=== PATIENT | male | born 1955 | race Hispanic/Latino ===

== ENCOUNTER 2017-08-11 18:46 | Emergency (ER) | payer OTHER ==
[2017-08-11] MEDS ORDERED: IBUPROFEN 400 MG TABLET ONE (19:20)
[2017-08-11] MEDS ORDERED: IBUPROFEN 200 MG TAB ONE (19:21)
[2017-08-11 19:55] LABS: RAPID GROUP A STREP NEGATIVE (NEGATIVE)
== END 2017-08-11 20:09 | disposition home or self-care (01) ==
LOC: EDH 18:46
DX: J09.X2 Influenza due to identified novel influenza A virus with other respiratory manifestations (principal)
CPT/HCPCS: 87804; 87880

== ENCOUNTER → 2018-04-25 | Outpatient (CLI) | payer OTHER ==
[~2018-04-25] MED LIST: ASPI-1181 PO; LAMISIL PO; MULT1TAB70 PO; SIMV40TA5 PO
== END | disposition home or self-care (01) ==
LOC: RAH 14:29
PROVIDERS: ATTEND Internal Medicine
DX: M47.22 Other spondylosis with radiculopathy, cervical region (principal); M47.812 Spondylosis without myelopathy or radiculopathy, cervical region; M48.02 Spinal stenosis, cervical region; M25.78 Osteophyte, vertebrae
CPT/HCPCS: 72141

== ENCOUNTER → 2018-07-16 | Outpatient (CLI) | payer OTHER | END | disposition home or self-care (01) | LOC: RAH 15:44 | PROVIDERS: ATTEND Physical Medicine & Rehabilitation | DX: M47.26 Other spondylosis with radiculopathy, lumbar region (principal) | CPT/HCPCS: 72110 ==

== ENCOUNTER → 2018-12-09 | Outpatient (CLI) | payer OTHER ==
[2018-12-09 08:18] LABS: BASOPHILS % (AUTO) 0.4 % (0.0-5.0); EOSINOPHILS % (AUTO) 2.8 % (0.0-8.0); HEMATOCRIT 40.7 % (42-54); LYMPHOCYTES % (AUTO) 40.9 % (21.0-51.0); MEAN CORPUSCULAR HEMOGLOBIN 29.8 pg (27.0-33.0); MEAN CORPUSCULAR HGB CONC 33.5 g/dL (32.0-36.0); MEAN CORPUSCULAR VOLUME 89.1 fL (79-99); MONOCYTES % (AUTO) 7.6 % (3.0-13.0); NEUTROPHILS % (AUTO) 48.3 % (40.0-77.0); NUCLEATED RED BLOOD CELLS 0.1 % (0.0-0.19); PLATELET COUNT (AUTO) 210 K/uL (130-400); RED BLOOD CELL COUNT(AUTO) 4.57 MIL/uL (4.50-6.20); RED CELL DISTRIBUTION WIDTH 14.3 % (11.0-15.5); WHITE BLOOD COUNT (AUTO) 5.3 K/uL (4.8-10.8)
[2018-12-09 08:30] LABS: HEMOGLOBIN A1C 5.8 % (4.0-6.0)
[2018-12-09 08:36] LABS: ALBUMIN 4.2 g/dL (3.5-5.0); BILIRUBIN,TOTAL 0.5 mg/dL (0.2-1.0); CREATININE 1.2 mg/dL (0.5-1.5); POTASSIUM 4.3 mmol/L (3.5-5.1); TOTAL PROTEIN, SERUM 7.8 g/dL (6.0-8.3)
== END | disposition home or self-care (01) ==
LOC: LAB 07:40
PROVIDERS: ATTEND Internal Medicine
DX: E78.2 Mixed hyperlipidemia (principal); I10 Essential (primary) hypertension; R73.01 Impaired fasting glucose
CPT/HCPCS: 36415; 80053; 80061; 82043; 82270; 83036; 84153; 84154; 85025

== ENCOUNTER → 2019-02-24 | Outpatient (CLI) | payer OTHER | END | disposition home or self-care (01) | LOC: RAH 14:32 | PROVIDERS: ATTEND Neurological Surgery | DX: M51.16 Intervertebral disc disorders with radiculopathy, lumbar region (principal); M47.27 Other spondylosis with radiculopathy, lumbosacral region; M48.061 Spinal stenosis, lumbar region without neurogenic claudication; M25.78 Osteophyte, vertebrae | CPT/HCPCS: 72114; 72148 ==

== ENCOUNTER → 2020-01-01 | Outpatient (CLI) | payer OTHER ==
[~2020-01-01] MED LIST changes: -ASPI-1181 PO; +ASPI-1443 PO; +MULT-660 PO; -MULT1TAB70 PO; +SIMV-46 PO; -SIMV40TA5 PO
--- NOTE | 2020-01-01 22:46 | NUR ---
LOW DOSE ASPIRIN,ADVIL Addendum: 01/01/20 at 2248 by YORDY ECHEVERRIA Amended: Links added.
== END | disposition home or self-care (01) ==
LOC: SLP 20:38
PROVIDERS: ATTEND Internal Medicine
DX: G47.33 Obstructive sleep apnea (adult) (pediatric) (principal)
CPT/HCPCS: 95810

== ENCOUNTER → 2020-01-19 | Outpatient (CLI) | payer OTHER | END | disposition home or self-care (01) | LOC: SLP 20:32 | PROVIDERS: ATTEND Internal Medicine | DX: G47.33 Obstructive sleep apnea (adult) (pediatric) (principal) | CPT/HCPCS: 95811 ==

== ENCOUNTER 2021-08-01 07:23 | Day surgery (SDC) | payer OTHER ==
[~2021-08-01] VITALS: Ht 167.6 cm; Wt 78.0 kg
[~2021-08-01 07:23] MED LIST changes: +0.9%NACL 1000ML 1,000 ML IV ONE; +AMLO2.5T4 PO
[2021-08-01 09:03] VITALS: BP 153/75
[2021-08-01] MEDS ORDERED: TADA5TAB PO (09:48)
[2021-08-01] MEDS ORDERED: ATOR40TA71 PO (09:48)
[2021-08-01] MEDS ORDERED: PROPOFOL 10 MG/ML 20ML VIAL IV ONE ×2 (11:27)
[2021-08-01 11:55] VITALS: BP 111/75
[2021-08-01 12:00] VITALS: BP 119/66
[2021-08-01 12:05] VITALS: BP 126/64
[2021-08-01 12:10] VITALS: BP 128/60
== END 2021-08-01 12:15 | disposition home or self-care (01) ==
LOC: ENDO 07:23 → DAH 07:23 → ENDO 12:15
DX: Z12.11 Encounter for screening for malignant neoplasm of colon (principal); D12.5 Benign neoplasm of sigmoid colon; K29.50 Unspecified chronic gastritis without bleeding; K62.1 Rectal polyp; K44.9 Diaphragmatic hernia without obstruction or gangrene; K21.9 Gastro-esophageal reflux disease without esophagitis; K22.89 Other specified disease of esophagus; K31.89 Other diseases of stomach and duodenum; E78.5 Hyperlipidemia, unspecified; Z79.82 Long term (current) use of aspirin; Z79.899 Other long term (current) drug therapy; Z72.89 Other problems related to lifestyle; Z98.890 Other specified postprocedural states; Z20.822 Contact with and (suspected) exposure to COVID-19
CPT/HCPCS: 43239; 45380; 45385; 87635; A4215 ×2; A4221; A4222; A4223; A4606; A4620; A4663; C9803; J2704 ×2; J7030

== ENCOUNTER 2024-09-23 05:52 | Day surgery (SDC) | payer OTHER ==
[~2024-09-23] VITALS: Ht 167.6 cm; Wt 78.5 kg
[2024-09-23] VITALS (11 sets, daily range): BP systolic 100–158; BP diastolic 55–75; PULSE 67–75; RESP 15–18; TEMP 97.2–98.1
[~2024-09-23 05:52] MED LIST changes: -0.9%NACL 1000ML 1,000 ML IV ONE; +AMLO-257 PO; -AMLO2.5T4 PO; -ASPI-1443 PO; +ATOR40TA71 PO; -LAMISIL PO; -MULT-660 PO; -SIMV-46 PO; +TADA5TAB PO
[2024-09-23] MEDS: 0.9%NACL 1000ML 1,000 ML IV ONE (07:01)
[2024-09-23] MEDS ORDERED: proPOFol 10 MG/ML 20ML VIAL IV ONE (07:35)
== END 2024-09-23 09:15 | disposition home or self-care (01) ==
LOC: ENDO 05:52 → DAH 05:52 → ENDO 09:15
PROVIDERS: ATTEND Internal Medicine
DX: K59.00 Constipation, unspecified (principal); K29.50 Unspecified chronic gastritis without bleeding; K31.89 Other diseases of stomach and duodenum; K44.9 Diaphragmatic hernia without obstruction or gangrene; Z86.0100 Personal history of colon polyps, unspecified; I10 Essential (primary) hypertension; K21.9 Gastro-esophageal reflux disease without esophagitis; E78.5 Hyperlipidemia, unspecified; Z79.82 Long term (current) use of aspirin; Z79.899 Other long term (current) drug therapy
CPT/HCPCS: 43239; 45378; J7030; J2704; A4620; A4215; G0105; J3490

== ENCOUNTER → 2024-12-10 | Outpatient (CLI) | payer OTHER ==
--- NOTE | 2024-12-10 12:24 | HMCIMG ---
MR SPINAL CANAL, CERV WO CON HISTORY: Radiculopathy COMPARISON: None TECHNIQUE: MRI of the cervical spine was performed utilizing multiple pulse sequences in axial, coronal and sagittal plane. Patient was not given contrast through intravenous route. FINDINGS: No abnormal signal intensity is seen of the visualized bony structure. No loss of vertebral height is seen. There is straightening of normal lordotic cervical curvature which may be related to muscle spasm or positioning. Degenerative disc signals are present at all cervical spine levels. Cerebellar tonsils are in normal position. The cervical cord is of normal signal intensity without cord compression or impingement. At the C3-4 level, there is spondylotic disc causing anterior CSF space effacement with bilateral lateral recess stenosis and bilateral neural foraminal stenosis. The central canal measures approximately 6.5 mm in its anterior posterior dimension. At the C4-5 level, there is spondylotic disc causing anterior CSF space effacement with bilateral lateral recess stenosis and bilateral neural foraminal stenosis. The central canal measures approximately 5.8 mm in its anterior posterior dimension. At the C5-6 level, there is spondylotic disc causing anterior CSF space effacement with bilateral lateral recess stenosis and bilateral neural foraminal stenosis. The central canal measures approximately 6.1 mm in its anterior posterior dimension. At the C6-7 level, there is spondylotic disc causing anterior CSF space effacement with bilateral lateral recess stenosis and bilateral neural foraminal stenosis. The central canal measures approximately 5.3 mm in its anterior posterior dimension. At the C7-T1 level, there is spondylotic disc causing anterior CSF space effacement with bilateral lateral recess stenosis and bilateral neural foraminal stenosis. The central canal measures approximately 5.6 mm in its anterior posterior dimension. IMPRESSION: 1. 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
== END | disposition home or self-care (01) ==
LOC: RAH 09:49
PROVIDERS: ATTEND Internal Medicine
DX: M47.22 Other spondylosis with radiculopathy, cervical region (principal); M47.814 Spondylosis without myelopathy or radiculopathy, thoracic region; M48.03 Spinal stenosis, cervicothoracic region; G95.20 Unspecified cord compression
CPT/HCPCS: 72141